=== PATIENT | female | born 1975 | race Caucasian/White ===

== ENCOUNTER 2024-04-15 21:38 | Emergency (ER) | payer OTHER, SELFPAY ==
[2024-04-15 21:38] VITALS: BP 125/71
[2024-04-15 21:45] VITALS: BP 125/71
[2024-04-15 22:00] VITALS: BP 126/68
[2024-04-15 22:02] VITALS: BMI 21.2
--- NOTE | 2024-04-15 22:12 | ED.GENMED ---
History of Present Illness
General
Chief Complaint: Seizure
Source: patient
Exam Limitations: none
Time Seen by Provider: 04/15/24 22:00
History of Present Illness
History of Present Illness:
See MDM
Past History
Past History
ED Past Medical History: Seizures
ED Past Surgical History: Brain
Social History
Tobacco: Non-smoker
Alcohol: None
Phy Exam
Physical Exam
Physical Exam:
See MDM
Course
Orders/Labs/Results
Orders:
Orders
04/15/24 22:12
0.9% Sodium Chloride 1000 ml [Nss] 1,000 ml IV BOLUS
Lamotrigine [Lamictal] 300 mg PO NOW STA
04/15/24 22:13
CMP [Comprehensive Metabolic Panel] Urgent
Complete Blood Count/With Diff Urgent
Abnormal Lab Results
04/15/24
22:13
RBC 3.96 L 10^6/uL
(4.20-5.40)
Hgb 10.7 L g/dL
(12.0-16.0)
Hct 32.2 L %
(37.0-47.0)
MPV 10.6 H fL
(7.4-10.4)
Monocytes % 10.9 H %
(1.7-9.3)
BUN 19 H mg/dl
(7-17)
Calcium 10.3 H mg/dl
(8.4-10.2)
04/15/24 22:13
04/15/24 22:13
Vital Signs
Initial and Last Documented VS:
Initial Vital Signs
Temp Pulse Resp BP Pulse Ox
99.0 F 114 19 125/71 100
04/15/24 21:38 04/15/24 21:38 04/15/24 21:38 04/15/24 21:38 04/15/24 21:38
Last Documented Vital Signs
Temp Pulse Resp BP Pulse Ox
99.0 F 103 15 126/68 98
04/15/24 21:38 04/15/24 22:00 04/15/24 22:00 04/15/24 22:00 04/15/24 22:00
MDM/Problems Addressed
Differential Diagnosis Includes:
HPI and MDM Narrative:
48-year-old female presenting for evaluation of breakthrough seizure. She does have a history of seizure disorder and she is relatively compliant with her Lamictal dosing. She was diagnosed with partial complex seizures. She does admit to missing
a dose of Lamictal recently. She also admits to decreased sleep recently and increased stress. She believes much of this was related to her body shutting down due to recent COVID and all of the above stated. Patient was coming home from a long
day today and she opened up her computer to do work. Patient felt a seizure coming on and she had her normal presentation where the left side of her body was reaching out and then she started to have a partial complex seizure with lipsmacking.
states it lasted for 1 to 2 minutes. It was a normal breakthrough seizure other than she started to drool which was abnormal for the . Patient states this is somewhat normal for her. She denies being postictal and states she is
feeling back to her baseline.
Physical exam
General: Well appearing and non-toxic. No acute distress. No postictal state
HEENT: protecting airway. Dry mucous membranes
Neck: supple
CV: No evidence of cyanosis. Mild tachycardia
Resp: No accessory muscle use
Abd: Non-distended
Extremities: No deformities
Neuro: Awake and alert. No postictal state. No focal deficits
Psych: Normal affect
Skin: Intact
Problems Addressed including Acute and Chronic Conditions affecting care:
1. Breakthrough seizure
Acuity: acute
Prognosis: stable
Details: Likely in setting of missing dose of Lamictal, recent COVID and increased stress and decreased sleep. Will provide her nighttime Lamictal dose
2. Tachycardia
Acuity: acute
Prognosis: stable
Details: Likely in setting of mild dehydration. Will give IV fluids
3. Anemia
Acuity: acute
Prognosis: stable
Details: I did question patient about anemia. Her MCV is normal. Discussed concern for heavy menstrual cycles given age and gender. Patient does acknowledge that this has been going on recently. Discussed having this rechecked by PCP and
discussed possible outpatient pelvic ultrasound
Updates
I had a long discussion with the patient and at bedside. We discussed that her breakthrough seizure is likely answered by the fact that she had recent COVID and she missed a dose of Lamictal. We discussed that she is not permitted to drive
until her neurologist clears her. Both patient acknowledges this and her at bedside also acknowledge this.
On reassessment after fluids, tachycardia resolved and patient feeling much better and feels comfortable going home
Differential Diagnosis (but not limited to): Breakthrough seizure, myoclonus
Testing considered: CT head but she has no focal deficits
Drug therapy (if applicable): OTC meds, please see d/c instruction regarding Rx drugs
Amount and/or Complexity of Data Reviewed
Clinical info obtained from: Patient
External data reviewed: N/A
Labs I independently reviewed (but not limited to): Mild anemia
Radiology: N/A
Pulse Ox: not hypoxic
EKG independently reviewed: N/A
Feller Buncher Operator: N/A
Critical Care: N/A
Risk of Complication:
Social Determinants of health: Good social support
Discussed with other providers: N/A
Escalation of Care includes Admit/Obs: After being observed in the Emergency Department, pt stable for discharge.
Occasional wrong word or 'sound a like' substitutions may have occurred due to the inherent limitations of voice recognition software. Read the chart carefully and recognize, using context, where substitutions have occurred.
*Critical Care Note
Total Time (30-74mins, 75-104mins- exclusive of procedures): Not Applicable
ED Attending Note
-
Portions of this chart may have been created with voice recognition software.� Occasional wrong word or��sound alike� substitutions may have occurred due to the inherent limitations of voice recognition software.
Discharge Plan
Departure
Patient Disposition: Home (Routine Discharge)
Date of Disposition: 04/15/24
Time of Disposition: 23:12
Patient with high blood pressure during this ER visit?: No
Discharge Problem:
Breakthrough seizure
Instructions: Seizures, Adult (DC)
Activity Restrictions/Additional Instructions:
As we discussed, your breakthrough seizure is likely answered by the fact that you had COVID recently, increase stress, decrease sleep and recently missing a dose of a mental. Do not drive a car until you are cleared by your neurologist.
Please return for any worsening symptoms.
You may return at any time if you have further concerns.
Please follow up with your doctor at the first available appointment, preferably this week. Please discuss your mild anemia. It may be worth starting iron and potentially getting a pelvic ultrasound to rule out fibroids as a reason for your heavy
menstrual cycle.
Interventions
Interventions:
*Neglect/Abuse Screening Last Done: 04/15/24 21:48
ED- Cardiac Assessment Last Done: 04/15/24 22:05
ED- Neurological Assessment Last Done: 04/15/24 22:05
ED- Pulmonary Assessment Last Done: 04/15/24 22:05
Discharge Date and Time
Print Language: HAITIAN
[2024-04-15] MEDS: NSS 1000 IV (22:14)
[2024-04-15] MEDS: LAMICTAL 300 MG PO (22:17)
[2024-04-15 22:23] LABS: % Basophils 1.1 % (0-2); % Eosinophils 2.3 % (0-6); % Immature Granulocytes 0.2 % (0-0.5); % Lymphocytes 40.8 % (20.5-51.1); % Monocytes 10.9 % (1.7-9.3); % Neutrophils 44.7 % (42.2-75.2); Absolute Basophils 0.1 10^3/uL (0-0.2); Absolute Eosinophils 0.1 10^3/uL (0-0.7); Absolute Lymphocytes 2.2 10^3/uL (1.2-3.4); Absolute Monocytes 0.6 10^3/uL (0.1-0.6); Absolute Neutrophils 2.4 10^3/uL (1.4-6.5); Hematocrit 32.2 % (37.0-47.0); Hemoglobin 10.7 g/dL (12.0-16.0); Mean Corp Hgb Conc. 33.2 g/dL (33.0-37.0); Mean Corpuscular Volume 81.3 fL (81.0-99.0); Mean Platelet Volume 10.6 fL (7.4-10.4); Nucleated Red Blood Cells % 0 %; Platelet Count 271 10^3/uL (130-400); Red Blood Cell Count 3.96 10^6/uL (4.20-5.40); Red Cell Dist. Width 13.2 % (11.5-14.5); White Blood Cell Count 5.3 10^3/uL (4.8-10.8)
[2024-04-15 22:44] LABS: ALT (SGPT) 15 U/L (0-35); AST (SGOT) 33 U/L (14-36); Albumin 4.3 g/dl (3.5-5.0); Alkaline Phosphatase 65 U/L (38-126); Blood Urea Nitrogen 19 mg/dl (7-17); Calcium 10.3 mg/dl (8.4-10.2); Carbon Dioxide 25 mmol/L (22-30); Chloride 103 mmol/L (98-107); Estimated Creatinine Clearance 86 ml/min; Glucose 96 mg/dl (70-99); Potassium 4.5 mmol/L (3.5-5.1); Sodium 140 mmol/L (135-145); Total Bilirubin 0.3 mg/dl (0.2-1.3); eGFR > 60.00
[2024-04-15 23:00] VITALS: BP 105/70
[2024-04-15 23:27] VITALS: BP 111/82
== END 2024-04-15 23:33 | disposition home or self-care (01) ==
LOC: EMR 21:38
PROVIDERS: EMERGENCY PHYSICIAN Student in an Organized Health Care Education/Training Program
DX: G40.909 Epilepsy, unspecified, not intractable, without status epilepticus (principal)
CPT/HCPCS: 99283; 80053; 85025